=== PATIENT | male | born 1945 | race Caucasian/White ===

== ENCOUNTER 2020-02-14 13:45 | Emergency (ER) | payer MEDICARE, OTHER, SELFPAY | END 2020-02-14 15:30 | disposition left against medical advice (07) | PROVIDERS: Emergency Provider Emergency Medicine | DX: M79.603 Pain in arm, unspecified (principal) ==

== ENCOUNTER 2020-03-05 06:51 | Emergency (ER) | payer MEDICARE, SELFPAY ==
[2020-03-05 06:53] VITALS: BP 150/90; PULSE 75; RESP 14; TEMP 36.4; O2SAT 99; BMI 37.4
--- NOTE | 2020-03-05 07:27 | XR_ITS ---
EXAMINATION: XR elbow RT min 3V CLINICAL INFORMATION: Reason for Exam pain COMPARISON: None available at the time of this dictation. TECHNIQUE: Frontal lateral obliques views of the elbow were obtained. FINDINGS: Narrowing of joint space and developed osteophyte from articular edges suggests underlying degenerative osteoarthritis. No fracture. Bone alignments are satisfactory. No osteolytic or osteoblastic lesion. XR/XR elbow RT min 3V IMPRESSION: Degenerative osteoarthritis. No fracture.
--- NOTE | 2020-03-05 07:27 | XR_ITS ---
EXAMINATION: XR elbow LT min 3V CLINICAL INFORMATION: Reason for Exam pain COMPARISON: None available at the time of this dictation. TECHNIQUE: Frontal lateral and oblique views of the elbow were obtained. FINDINGS: Oblique radiolucent line through the proximal radius concerning for possible hairline nondisplaced fracture. Bone alignments remain satisfactory. There is underlying degenerative osteoarthritis. XR/XR elbow LT min 3V IMPRESSION: Subtle oblique radiolucent line through the proximal left radius, suspect nondisplaced hairline fracture. This could be confirmed by CT scan or MRI. Underlying degenerative osteoarthritis.
[2020-03-05] MEDS: oxyCODONE HCl Immed Release 5 MG TABLET PO (07:38)
[2020-03-05] MEDS: Ibuprofen 800 MG TABLET PO (07:38)
[2020-03-05 09:14] LABS: Basophils Absolute Auto 0.1 X10*3/uL (0.0-0.2); Basophils Percent Auto 0.9 % (0-2); Eosinophils Absolute Auto 0.4 X10*3/uL (0.0-0.4); Eosinophils Percent Auto 3.6 % (0-4); Hematocrit 44.4 % (42-52); Hemoglobin 14.5 g/dl (14.0-18.0); Imm Gran Abs Auto 0.02 X10*3/uL (0.00-0.03); Imm Gran Pct Auto 0.2 % (0.0-0.4); Lymphocytes Absolute Auto 1.6 X10*3/uL (1.2-4.9); Lymphocytes Percent Auto 16.2 % (20-40); MANUAL DIFF FLAG NO; Mean Corpuscular HGB Conc 32.7 g/dl (31.0-36.0); Mean Corpuscular Hemoglobin 29.2 pg (27.0-33.0); Mean Corpuscular Volume 89.3 fL (80-98); Mean Platelet Volume 8.7 fL (9.4-12.4); Monocytes Percent Auto 10.1 % (2-11); Neutrophils Absolute Auto 6.7 X10*3/uL (2.0-8.3); Platelet Count 297 X10*3/uL (160-400); Red Blood Count 4.97 X10*6/uL (4.60-5.80); Red Cell Distribution Width 13.6 % (11.0-16.0); White Blood Count 9.7 X10*3/uL (4.8-10.8)
[2020-03-05 09:57] LABS: C Reactive Protein 2.26 mg/dL (< or = 0.50)
[2020-03-05 09:59] LABS: Anion Gap 12 (12-20); Blood Urea Nitrogen 11 mg/dL (9-16); Carbon Dioxide 27 mmol/L (22-29); Chloride 101 mmol/L (96-108); Creatinine Clr Calc Pharmacy 97.2; Estimated Glomerular Filt Rate > 60; Glucose Random 101 mg/dL (60-115); Lipase 14 U/L (8-78); Potassium 4.5 mmol/l (3.3-5.1); Sodium 135 mmol/L (135-145)
[2020-03-05 10:01] LABS: Calcium 9.1 mg/dL (8.4-10.2)
--- NOTE | 2020-03-05 10:12 | CT_ITS ---
EXAMINATION: NONCONTRAST CT SCAN ELBOW. CLINICAL INFORMATION: Questionable fracture. COMPARISON: None TECHNIQUE: Noncontrast CT scan elbow Department standard protocol. FINDINGS: Bones: Distal humerus, trochlear, included proximal radius and ulna are intact. No radiographic evidence of acute fracture. No periosteal reaction. Joints: Narrowing of joint spaces and developed osteophytes from articular edges suggests underlying degenerative osteoarthritis. Soft tissue: Surrounding soft tissues grossly unremarkable. CT/CT elbow LT wo con IMPRESSION: 1. No CT evidence of acute fracture. 2. There is underlying moderate Underlying degenerative osteoarthritis.
[2020-03-05 10:58] LABS: Erythrocyte Sedimentation Rate 33 MM/HR (0-15)
[2020-03-05 11:41] VITALS: BP 149/99; PULSE 18
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
== END 2020-03-05 12:27 | disposition home or self-care (01) ==
PROVIDERS: Emergency Provider Emergency Medicine
DX: M06.812 Other specified rheumatoid arthritis, left shoulder (principal); M06.811 Other specified rheumatoid arthritis, right shoulder; Z79.899 Other long term (current) drug therapy
CPT/HCPCS: 36415; 73080; 73200; 80048; 83690; 85025; 85652; 86140; 99284

== ENCOUNTER 2020-05-11 08:02 | Outpatient (REF) | payer MEDICARE, SELFPAY ==
--- NOTE | 2020-05-11 09:30 | XR_ITS ---
EXAMINATION: XR HAND, BILATERAL XR WRIST, BILATERAL CLINICAL INFORMATION: Rheumatoid arthritis with rheumatoid factor. COMPARISON: None TECHNIQUE: 4-view right hand and wrist and 4-view left hand and wrist. FINDINGS: RIGHT HAND AND WRIST: There is osteopenia of visualized bones. No acute fracture or dislocation is evident. There is a bone island noted within the 1st distal phalanx. There is narrowing of the 2nd distal interphalangeal joint with some mild sclerosis and spurring. There is some mild spurring seen about the 1st metacarpophalangeal joint. There appears be a small periarticular erosion or subchondral cyst seen involving the base of the 4th distal phalanx. There is also question of a subchondral cyst or small erosion involving the periarticular region head of the 3rd middle phalanx. There is an erosion involving the periarticular head of the 3rd metacarpal. There is a small erosion seen involving the periarticular region base of the 5th proximal phalanx. There is a large subchondral low-density lesion within the distal radius without cortical break appreciated and with mild sclerotic rim. There is some mild degenerative change of the triscaphe joint as well as some mild spurring about the 1st carpometacarpal joint. There appears to be an erosion or subchondral cyst involving the base of the 2nd metacarpal. No significant soft tissue swelling is seen. No periosteal new bone formation. LEFT HAND AND WRIST: Views of the left hand demonstrate some mild degenerative narrowing and spurring about the 1st metacarpophalangeal joint. There is some narrowing and spurring seen involving the 2nd metacarpophalangeal joint as well some spurring about the 3rd metacarpophalangeal joint. No definite erosive change. Subchondral cysts are seen involving the 2nd metacarpal head. There appears to be an erosion involving the proximal lunate. No significant soft tissue swelling identified. No periosteal new bone formation. XR/XR hand wrist RT IMPRESSION: Mild degenerative and erosive change of the right hand which may be indicative of early erosive arthritides with a periarticular pattern and no evidence of new bone formation which can be seen with rheumatoid arthritis. No significant joint space destruction. Mild degenerative change as described with question of few erosions but not definite.
--- NOTE | 2020-05-11 09:30 | XR_ITS ---
EXAMINATION: XR ELBOW, LEFT XR ELBOW, RIGHT CLINICAL INFORMATION: M05.9 - Rheumatoid arthritis with rheumatoid factor, unspecified COMPARISON: Bilateral elbow radiographs 03/05/2020, CT left elbow 03/05/2020 TECHNIQUE: Left elbow is imaged in 3 views. Right elbow is imaged in 4 views. There are total of 7 views. FINDINGS: Left: There is normal bony mineralization. No periarticular demineralization. No definite elbow capsular effusion. There is joint narrowing medial and lateral sides of the elbow joint with subchondral sclerosis and spurring. Small subchondral geode present capitellum. No focal definite erosive change. Right: There is normal bony mineralization. No periarticular demineralization. No definite elbow capsular effusion. There is joint narrowing medial and lateral sides of the elbow joint with subchondral sclerosis and spurring. Small subchondral geode present capitellum. No focal definite erosive change. XR/XR elbow LT 2V IMPRESSION: 1. Normal bony mineralization. No visible elbow capsular effusion. 2. Bilateral narrowing elbow joint mediolateral sides with subchondral sclerosis and spurring and capitellum subchondral geode. No definite focal erosive change.
[2020-05-11 09:34] LABS: MANUAL DIFF FLAG NO
--- NOTE | 2020-05-11 09:36 | XR_ITS ---
EXAMINATION: XR ELBOW, LEFT XR ELBOW, RIGHT CLINICAL INFORMATION: M05.9 - Rheumatoid arthritis with rheumatoid factor, unspecified COMPARISON: Bilateral elbow radiographs 03/05/2020, CT left elbow 03/05/2020 TECHNIQUE: Left elbow is imaged in 3 views. Right elbow is imaged in 4 views. There are total of 7 views. FINDINGS: Left: There is normal bony mineralization. No periarticular demineralization. No definite elbow capsular effusion. There is joint narrowing medial and lateral sides of the elbow joint with subchondral sclerosis and spurring. Small subchondral geode present capitellum. No focal definite erosive change. Right: There is normal bony mineralization. No periarticular demineralization. No definite elbow capsular effusion. There is joint narrowing medial and lateral sides of the elbow joint with subchondral sclerosis and spurring. Small subchondral geode present capitellum. No focal definite erosive change. XR/XR elbow RT 2V IMPRESSION: 1. Normal bony mineralization. No visible elbow capsular effusion. 2. Bilateral narrowing elbow joint mediolateral sides with subchondral sclerosis and spurring and capitellum subchondral geode. No definite focal erosive change.
[2020-05-11 09:39] LABS: Basophils Absolute Auto 0.1 X10*3/uL (0.0-0.2); Basophils Percent Auto 1.1 % (0-2); Eosinophils Absolute Auto 0.3 X10*3/uL (0.0-0.4); Eosinophils Percent Auto 3.2 % (0-4); Hematocrit 42.8 % (42-52); Hemoglobin 13.9 g/dl (14.0-18.0); Imm Gran Abs Auto 0.03 X10*3/uL (0.00-0.03); Imm Gran Pct Auto 0.4 % (0.0-0.4); Lymphocytes Absolute Auto 1.7 X10*3/uL (1.2-4.9); Lymphocytes Percent Auto 20.6 % (20-40); Mean Corpuscular HGB Conc 32.5 g/dl (31.0-36.0); Mean Corpuscular Hemoglobin 28.8 pg (27.0-33.0); Mean Corpuscular Volume 88.8 fL (80-98); Mean Platelet Volume 9.3 fL (9.4-12.4); Monocytes Absolute Auto 0.8 X10*3/uL (0.1-1.2); Monocytes Percent Auto 9.5 % (2-11); Neutrophils Absolute Auto 5.3 X10*3/uL (2.0-8.3); Neutrophils Percent Auto 65.2 % (45-73); Platelet Count 343 X10*3/uL (160-400); Red Blood Count 4.82 X10*6/uL (4.60-5.80); White Blood Count 8.1 X10*3/uL (4.8-10.8)
[2020-05-11 10:09] LABS: Alanine Aminotransferase 11 U/L (0-40); Albumin Level 4.2 g/dL (3.5-5.0); Alkaline Phosphatase 69 U/L (39-117); Anion Gap 14 (12-20); Aspartate Amino Transferase 15 U/L (5-37); Bilirubin Total 0.6 mg/dL (0.0-1.0); Blood Urea Nitrogen 12 mg/dL (9-16); C Reactive Protein 1.37 mg/dL (< or = 0.50); Calcium 9.6 mg/dL (8.4-10.2); Carbon Dioxide 28 mmol/L (22-29); Chloride 101 mmol/L (96-108); Estimated Glomerular Filt Rate > 60; Glucose Random 103 mg/dL (60-115); Potassium 4.5 mmol/l (3.3-5.1); Sodium 138 mmol/L (135-145); Total Protein 7.6 g/dL (6.5-8.0); Uric Acid 6.5 mg/dL (3.4-7.0)
[2020-05-11 10:18] LABS: Rheumatoid Factor 96.2 IU/mL (<15.0)
[2020-05-11 10:21] LABS: HBS Num1 1.35 mIU/mL (0-7.99); HBc Num1 0.05 S/CO (0.00-0.79); HBsAGNum1 0.19 S/CO (0.00-0.99); Hepatitis B Core Antibody Nonreactive (Nonreactive); Hepatitis B Surface Antigen Negative (Negative); ~HepC Num1 0.07 S/CO (0.00-0.79); ~Hepatitis A Antibody IgM Nonreactive (Nonreactive); ~Hepatitis B Surface Antibody NONREACTIVE (Nonreactive); ~Hepatitis C Antibody Nonreactive (Nonreactive)
[2020-05-11 10:59] LABS: Erythrocyte Sedimentation Rate 50 MM/HR (0-15)
[2020-05-12 22:06] LABS: Cyclic Citrullinated Peptide >250 UNITS
[2020-05-14 23:32] LABS: TS Negative Control Passed; TS Panel A 2; TS Panel B 0; TS Positive Control Passed; TSpotTB Negative (SeeBelow)
[2020-05-15 19:08] LABS: Anti Nuclear Antibody Pattern Nuclear, Homogeneous; Anti Nuclear Antibody Screen POSITIVE (NEGATIVE); Anti Nuclear Antibody Titer 1:40 titer
== END 2020-05-11 08:03 | disposition home or self-care (01) ==
LOC: HO.LAB 08:02
PROVIDERS: PCP Family Medicine; Visit Provider Student in an Organized Health Care Education/Training Program
DX: M05.9 Rheumatoid arthritis with rheumatoid factor, unspecified (principal); M10.9 Gout, unspecified; Z79.899 Other long term (current) drug therapy
CPT/HCPCS: 36415; 73070; 73110; 73130; 80053; 84550; 85025; 85652; 86038; 86039; 86140; 86200; 86431; 86481; 86704; 86706; 86709; 86803; 87340; 99202

== ENCOUNTER → 2020-05-26 07:13 | Outpatient (BNVA) | payer MEDICARE, OTHER, SELFPAY | PROVIDERS: PCP Family Medicine; Visit Provider Student in an Organized Health Care Education/Training Program | DX: M05.9 Rheumatoid arthritis with rheumatoid factor, unspecified (principal); M10.9 Gout, unspecified; M85.80 Other specified disorders of bone density and structure, unspecified site | CPT/HCPCS: 99212 ==

== ENCOUNTER 2020-06-01 09:26 | Outpatient (REF) | payer MEDICARE, SELFPAY ==
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
== END 2020-06-01 09:27 | disposition home or self-care (01) ==
LOC: HO.MAMMO 09:26
PROVIDERS: Visit Provider Student in an Organized Health Care Education/Training Program
DX: Z13.820 Encounter for screening for osteoporosis (principal); M85.88 Other specified disorders of bone density and structure, other site; M06.9 Rheumatoid arthritis, unspecified; Z79.52 Long term (current) use of systemic steroids; Z79.899 Other long term (current) drug therapy
CPT/HCPCS: 77080

== ENCOUNTER → 2020-06-20 09:44 | Outpatient (BNVA) | payer OTHER, MEDICARE, SELFPAY | PROVIDERS: PCP Family Medicine; Visit Provider Student in an Organized Health Care Education/Training Program ==

== ENCOUNTER 2020-08-25 10:01 | Outpatient (REF) | payer MEDICARE, SELFPAY ==
[2020-08-25 11:09] LABS: MANUAL DIFF FLAG NO
[2020-08-25 11:57] LABS: Alanine Aminotransferase 10 U/L (0-40); Albumin Level 4.1 g/dL (3.5-5.0); Alkaline Phosphatase 69 U/L (39-117); Anion Gap 14 (12-20); Aspartate Amino Transferase 12 U/L (5-37); Bilirubin Total 0.2 mg/dL (0.0-1.0); Blood Urea Nitrogen 10 mg/dL (9-16); C Reactive Protein 0.85 mg/dL (< or = 0.50); Calcium 9.9 mg/dL (8.4-10.2); Carbon Dioxide 29 mmol/L (22-29); Chloride 103 mmol/L (96-108); Estimated Glomerular Filt Rate > 60; Glucose Random 76 mg/dL (60-115); Potassium 5.2 mmol/L (3.3-5.1); Sodium 141 mmol/L (135-145); Total Protein 7.3 g/dL (6.5-8.0)
[2020-08-25 11:58] LABS: Basophils Absolute Auto 0.1 X10*3/uL (0.0-0.2); Basophils Percent Auto 1.1 % (0-2); Eosinophils Absolute Auto 0.4 X10*3/uL (0.0-0.4); Eosinophils Percent Auto 4.1 % (0-4); Hematocrit 43.8 % (42-52); Imm Gran Abs Auto 0.04 X10*3/uL (0.00-0.03); Imm Gran Pct Auto 0.5 % (0.0-0.4); Lymphocytes Absolute Auto 1.9 X10*3/uL (1.2-4.9); Lymphocytes Percent Auto 21.9 % (20-40); Mean Corpuscular Hemoglobin 28.4 pg (27.0-33.0); Mean Corpuscular Volume 88.8 fL (80-98); Mean Platelet Volume 9.1 fL (9.4-12.4); Monocytes Absolute Auto 0.9 X10*3/uL (0.1-1.2); Monocytes Percent Auto 10.2 % (2-11); Neutrophils Absolute Auto 5.3 X10*3/uL (2.0-8.3); Neutrophils Percent Auto 62.2 % (45-73); Platelet Count 385 X10*3/uL (160-400); Red Blood Count 4.93 X10*6/uL (4.60-5.80); Red Cell Distribution Width 14.4 % (11.0-16.0); White Blood Count 8.6 X10*3/uL (4.8-10.8)
[2020-08-25 12:41] LABS: Erythrocyte Sedimentation Rate 51 MM/HR (0-15)
[2020-08-29 12:56] LABS: Vitamin D 25-OH, D2 <4 ng/mL; Vitamin D 25-OH, D3 32 ng/mL; Vitamin D 25-OH, Total 32 ng/mL (30-100)
== END 2020-08-25 10:02 | disposition home or self-care (01) ==
LOC: HO.LAB 10:01
PROVIDERS: PCP Family Medicine; Visit Provider Student in an Organized Health Care Education/Training Program
DX: M05.9 Rheumatoid arthritis with rheumatoid factor, unspecified (principal); M85.80 Other specified disorders of bone density and structure, unspecified site; M10.9 Gout, unspecified; Z87.891 Personal history of nicotine dependence; Z88.8 Allergy status to other drugs, medicaments and biological substances; Z79.899 Other long term (current) drug therapy
CPT/HCPCS: 36415; 80053; 82306; 85025; 85652; 86140; 99212

== ENCOUNTER 2020-12-06 11:40 | Outpatient (REF) | payer OTHER, SELFPAY ==
[2020-12-06 13:47] LABS: Alanine Aminotransferase 14 U/L (0-40); Albumin Level 4.2 g/dL (3.5-5.0); Alkaline Phosphatase 76 U/L (39-117); Anion Gap 13 (12-20); Aspartate Amino Transferase 17 U/L (5-37); Bilirubin Total 0.6 mg/dL (0.0-1.0); Blood Urea Nitrogen 10 mg/dL (9-16); C Reactive Protein 0.76 mg/dL (< or = 0.50); Calcium 9.8 mg/dL (8.4-10.2); Carbon Dioxide 27 mmol/L (22-29); Chloride 102 mmol/L (96-108); Estimated Glomerular Filt Rate > 60; Glucose Random 94 mg/dL (60-115); Potassium 4.8 mmol/L (3.3-5.1); Sodium 137 mmol/L (135-145); Total Protein 7.5 g/dL (6.5-8.0)
[2020-12-06 13:56] LABS: Erythrocyte Sedimentation Rate 34 MM/HR (0-15)
== END 2020-12-06 11:41 | disposition home or self-care (01) ==
LOC: HO.LAB 11:40
PROVIDERS: PCP Family Medicine; Visit Provider Student in an Organized Health Care Education/Training Program
DX: M05.9 Rheumatoid arthritis with rheumatoid factor, unspecified (principal)
CPT/HCPCS: 36415; 80053; 85652; 86140

== ENCOUNTER 2020-12-08 13:00 | Outpatient (REF) | payer OTHER, SELFPAY ==
[2020-12-08 14:48] LABS: MANUAL DIFF FLAG NO
[2020-12-08 14:50] LABS: Basophils Absolute Auto 0.1 X10*3/uL (0.0-0.2); Basophils Percent Auto 0.9 % (0-2); Eosinophils Absolute Auto 0.3 X10*3/uL (0.0-0.4); Eosinophils Percent Auto 4.1 % (0-4); Hematocrit 41.5 % (42-52); Hemoglobin 13.3 g/dl (14.0-18.0); Imm Gran Abs Auto 0.03 X10*3/uL (0.00-0.03); Imm Gran Pct Auto 0.4 % (0.0-0.4); Mean Corpuscular Hemoglobin 28.2 pg (27.0-33.0); Mean Corpuscular Volume 87.9 fL (80-98); Mean Platelet Volume 8.9 fL (9.4-12.4); Monocytes Absolute Auto 0.7 X10*3/uL (0.1-1.2); Monocytes Percent Auto 8.7 % (2-11); Neutrophils Absolute Auto 5.1 X10*3/uL (2.0-8.3); Neutrophils Percent Auto 61.9 % (45-73); Platelet Count 320 X10*3/uL (160-400); Red Blood Count 4.72 X10*6/uL (4.60-5.80); Red Cell Distribution Width 14.8 % (11.0-16.0); White Blood Count 8.1 X10*3/uL (4.8-10.8)
[2020-12-10 15:27] LABS: TS Negative Control Passed; TS Panel A 0; TS Panel B 0; TS Positive Control Passed; TSpotTB Negative (Negative)
[2020-12-11 03:28] LABS: HBc Num1 0.08 S/CO (0.00-0.79); HBsAGNum1 0.16 S/CO (0.00-0.99); Hepatitis B Core Antibody Nonreactive (Nonreactive); Hepatitis B Surface Antigen Negative (Negative); ~HepC Num1 0.07 S/CO (0.00-0.79); ~Hepatitis C Antibody Nonreactive (Nonreactive)
[2020-12-11 03:32] LABS: HBS Num1 0.36 mIU/mL (0-7.99); ~Hepatitis B Surface Antibody NONREACTIVE (Nonreactive)
[2020-12-13 08:46] LABS: Hepatitis A Antibody IgM 0.12 Index (0-0.79); ~Hepatitis A Antibody IgM Nonreactive (Nonreactive)
== END 2020-12-08 13:01 | disposition home or self-care (01) ==
LOC: HO.LAB 13:00
PROVIDERS: PCP Family Medicine; Visit Provider Nurse Practitioner Family
DX: Z01.84 Encounter for antibody response examination (principal); Z11.1 Encounter for screening for respiratory tuberculosis; Z11.59 Encounter for screening for other viral diseases; M05.9 Rheumatoid arthritis with rheumatoid factor, unspecified; M10.9 Gout, unspecified; M85.80 Other specified disorders of bone density and structure, unspecified site; Z79.899 Other long term (current) drug therapy
CPT/HCPCS: 36415; 85025; 86481; 86704; 86706; 86709; 86803; 87340; 99212

== ENCOUNTER 2021-02-07 08:21 | Outpatient (REF) | payer OTHER, SELFPAY ==
[2021-02-07 08:40] LABS: MANUAL DIFF FLAG NO
[2021-02-07 08:47] LABS: Basophils Percent Auto 0.6 % (0-2); Eosinophils Absolute Auto 0.3 X10*3/uL (0.0-0.4); Eosinophils Percent Auto 5.1 % (0-4); Hematocrit 43.9 % (42-52); Hemoglobin 14.4 g/dl (14.0-18.0); Imm Gran Abs Auto 0.01 X10*3/uL (0.00-0.03); Imm Gran Pct Auto 0.1 % (0.0-0.4); Lymphocytes Percent Auto 29.8 % (20-40); Mean Corpuscular HGB Conc 32.8 g/dl (31.0-36.0); Mean Corpuscular Volume 88.5 fL (80-98); Mean Platelet Volume 8.9 fL (9.4-12.4); Monocytes Absolute Auto 0.8 X10*3/uL (0.1-1.2); Monocytes Percent Auto 11.8 % (2-11); Neutrophils Absolute Auto 3.5 X10*3/uL (2.0-8.3); Neutrophils Percent Auto 52.6 % (45-73); Platelet Count 272 X10*3/uL (160-400); Red Blood Count 4.96 X10*6/uL (4.60-5.80); Red Cell Distribution Width 15.4 % (11.0-16.0); White Blood Count 6.7 X10*3/uL (4.8-10.8)
[2021-02-07 09:15] LABS: Alanine Aminotransferase 14 U/L (0-40); Albumin Level 4.2 g/dL (3.5-5.0); Alkaline Phosphatase 65 U/L (39-117); Anion Gap 13 (12-20); Aspartate Amino Transferase 17 U/L (5-37); Bilirubin Total 1.1 mg/dL (0.0-1.0); Blood Urea Nitrogen 12 mg/dL (9-16); Calcium 9.8 mg/dL (8.4-10.2); Carbon Dioxide 27 mmol/L (22-29); Chloride 104 mmol/L (96-108); Estimated Glomerular Filt Rate > 60; Glucose Random 99 mg/dL (60-115); Potassium 4.5 mmol/L (3.3-5.1); Sodium 139 mmol/L (135-145); Total Protein 7.4 g/dL (6.5-8.0)
[2021-02-07 09:26] LABS: C Reactive Protein 0.49 mg/dL (< or = 0.50)
[2021-02-07 09:37] LABS: Erythrocyte Sedimentation Rate 20 MM/HR (0-15)
[2021-02-07 09:48] LABS: Uric Acid 6.8 mg/dL (3.4-7.0)
== END 2021-02-07 08:22 | disposition home or self-care (01) ==
LOC: HO.LAB 08:21
PROVIDERS: PCP Family Medicine; Visit Provider Nurse Practitioner Family
DX: M05.9 Rheumatoid arthritis with rheumatoid factor, unspecified (principal)
CPT/HCPCS: 36415; 80053; 84550; 85025; 85652; 86140

== ENCOUNTER → 2021-02-12 08:36 | Outpatient (BNVA) | payer OTHER, SELFPAY | PROVIDERS: PCP Family Medicine; Visit Provider Nurse Practitioner Family | DX: M05.9 Rheumatoid arthritis with rheumatoid factor, unspecified (principal); M10.9 Gout, unspecified; M85.80 Other specified disorders of bone density and structure, unspecified site; Z87.891 Personal history of nicotine dependence | CPT/HCPCS: 99212 ==

== ENCOUNTER 2021-03-31 11:25 | Inpatient (IN) | payer OTHER, SELFPAY ==
[2021-03-31] VITALS (8 sets, daily range): BP systolic 105–157; BP diastolic 51–95; PULSE 59–107; RESP 16–28; TEMP 36.1–38.2; O2SAT 89–98; BMI 36.1; BMI 36.6
--- NOTE | ~2021-03-31 | XR_ITS ---
EXAMINATION: XR CHEST CLINICAL INFORMATION: Dyspnea. COMPARISON: 01/13/2017 chest radiographs. TECHNIQUE: Frontal view of the chest was obtained. FINDINGS: Mild bilateral patchy opacities are seen with peripheral distribution in the mid and lower lung merino, right greater than left. The heart and mediastinal structures are unremarkable. XR/XR chest 1V IMPRESSION: Mild bilateral patchy opacities are nonspecific, but suggest an infectious/inflammatory process. COVID 19 can demonstrate this appearance. Correlate clinically.
--- NOTE | 2021-03-31 12:04 | ECG_ITS ---
Test Reason : WEAKNESS Blood Pressure : / mmHG Vent. 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
--- NOTE | 2021-03-31 12:06 | ED_ITS ---
HPI - General Adult General Chief complaint: General Medical Stated complaint: COVID+ Time Seen by Provider: 03/31/21 11:36 Source: patient Mode of arrival: ambulatory Limitations: no limitations History of Present Illness HPI narrative: COVID + unvaccinated in room next door both went to a family gathering unmasked symptoms started around 03/17 dx 03/26 MD complaint: fatigue, palpitations Onset (ago): day(s) (03/17) Location: chest Radiation: non-radiation Severity: moderate Quality: aching Pain Consistency: constant Relieving factors: rest Exacerbating factors: other (exertion) Associated symptoms: cough, malaise, weakness and other Treatments prior to arrival: none Related Data Home Medications Medication Instructions Recorded Confirmed albuterol sulfate 90 mcg/actuation 2 puff INHALATION Q6H PRN 05/11/20 03/31/21 aerosol inhaler budesonide-formoterol HFA 160 1 puff INHALATION DAILY g 05/11/20 03/31/21 mcg-4.5 mcg/actuation aerosol inhaler montelukast 10 mg tablet 1 tab PO DAILY 03/31/21 03/31/21 Previous Rx's Medication Instructions Recorded etanercept 50 mg/mL (1 mL) 50 mg SUBCUT QWEEK #4 ml 03/06/21 subcutaneous pen injector (Enbrel SureClick) Allergies Allergy/AdvReac Type Severity Reaction Status Date / Time Bgnzpua-[id number]-[id number] Reductase Allergy Severe HIVES Verified 02/12/21 08:54 Inhibitor [[id number]-QUK REDUCTASE INHIBITOR] methotrexate AdvReac Intermediate visual Verified 02/12/21 08:54 disturbance Review of Systems Review of Systems: Constitutional : No Fever, No Chills, pos fatigue ENT/Mouth : No sore throat, No Rhinorrhea, No Swallowing Difficulty Eyes: No Eye Pain, No Swelling, No Redness Cardiovascular : No Chest Pain, positive SOB, No Orthopnea, no Edema, pos palpitations Respiratory : pos Cough, No Sputum, No Wheezing, positive dyspnea Gastrointestinal : No Nausea, No Vomiting, No Diarrhea, No abdominal Pain, No Hematochezia, No Melena Genitourinary : No Dysuria, No Urinary Frequency, No Hematuria Musculoskeletal : No joint pain, No Myalgias Skin : No Skin Lesions, No rash Neuro : No Weakness, No Numbness, No Dizziness, No Headache Psych : No Anxiety/Panic, No Depression Heme/Lymph: No Bruising, No Lymphadenopathy Endocrine : No Polyuria, No Polydipsia All other systems reviewed and are negative [facility] Past Medical History Medical History Acute rheumatoid arthritis Gout Seropositive rheumatoid arthritis Surgical History H/O eye surgery History of knee surgery Social History Social History Alcohol intake: current Alcohol intake frequency: holidays/special occasions only Alcohol type: wine Patient Tobacco Use Status: Former Tobacco user Advance Directives: No Advance Directives Information Provided: No Physical Exam Vital Signs: Vital Signs: Last Vital Signs Temp 100.7 F H 03/31/21 13:29 Pulse 107 H 03/31/21 13:29 Resp 22 H 03/31/21 14:05 BP 105/51 L 03/31/21 13:29 Pulse Ox 95 03/31/21 14:12 BMI result Body Mass Index 36.1 Appearance: Alert. Oriented X3. No acute distress. Eyes: Pupils equal, round and reactive to light. ENT: Pharynx normal. Neck: Normal inspection. Neck supple. CVS: Normal heart rate and rhythm. Pulses normal. Respiratory: No respiratory distress. Breath sounds coarse and diminished, anterior rhonchi heard Abdomen: Soft and non-tender. Skin: Skin warm and dry. Normal skin color. Normal skin turgor. Extremities: No lower extremity edema. No calf ttp Neuro: Oriented X 3. No motor deficit. No sensory deficit. Course Course Course Narrative: stable on supplemental O2 Medical Decision Making [facility] Narrative Medical decision making narrative: 76 yo male unvaccinated with RA, gout here with viral illness since 03/17 - COVID + he is hypoxic on arrival to our ED, responding to supplemental O2 at this time labs, EKG< CXR< cultures, IV steroids, anticipate admission given hypoxia Lab Data Result diagrams: 03/31/21 12:49 03/31/21 14:42 Labs: Lab Results 03/31/21 03/31/21 12 Range/Units 12:49 12:49 12:49 WBC 5.6 (4.8-10.8) X10*3/uL RBC 4.91 (4.60-5.80) X10*6/uL Hgb 14.5 (14.0-18.0) g/dl Hct 42.8 (42.0-52.0) % MCV 87.2 (80.0-98.0) fL MCH 29.5 (27.0-33.0) pg MCHC 33.9 (31.0-36.0) g/dl RDW 14.9 (11.0-16.0) % Plt Count 172 (160-400) X10*3/uL MPV 10.4 (9.4-12.4) fL Immature Gran % (Auto) 0.5 H (0.0-0.4) % Neut % (Auto) 73.6 H (45-73) % Lymph % (Auto) 18.4 L (20-40) % [place] % (Auto) 6.8 (2-11) % Eos % (Auto) 0.5 (0-4) % Baso % (Auto) 0.2 (0-2) % Lymph # (Auto) 1.0 L (1.2-4.9) X10*3/uL [place] # (Auto) 0.4 (0.1-1.2) X10*3/uL Eos # (Auto) 0.0 (0.0-0.4) X10*3/uL Baso # (Auto) 0.0 (0.0-0.2) X10*3/uL Abs Immat Gran (auto) 0.03 (0.00-0.03) X10*3/uL Absolute Neuts (auto) 4.1 (2.0-8.3) x10*3/uL Absolute Nucleated RBC 0.000 (0.0-0.012) X10*3/uL Nucleated RBC % (auto) 0.0 (0.0-0.2) /100WBC PT 14.0 H (9.9-13.0) SEC INR 1.2 H (0.9-1.1) APTT 26.5 (24.1-38.0) SEC D-Dimer High Sensitivty 735 NG/ML VBG pH (7.32-7.43) VBG pCO2 mmHg VBG pO2 mmHg VBG HCO3 (22-26) mmol/L VBG O2 Saturation % VBG Base Excess mmol/L Sodium (135-145) mmol/L Potassium (3.3-5.1) mmol/L Chloride (96-108) mmol/L Carbon Dioxide (22-29) mmol/L Anion Gap (12-20) BUN (9-16) mg/dL Creatinine (0.5-1.4) mg/dL Estim Creat Clear Calc Estimated GFR Random Glucose (60-115) mg/dL Lactic Acid (0.5-2.0) mmol/L Calcium (8.4-10.2) mg/dL Magnesium (1.6-2.6) mg/dL Total Bilirubin (0.0-1.0) mg/dL Direct Bilirubin (0.0-0.5) mg/dL AST (5-37) U/L ALT (0-40) U/L Alkaline Phosphatase (39-117) U/L Lactate Dehydrogenase (118-273) U/L Total Creatine Kinase (38-174) U/L Troponin I High Sens (<3.5-35.0) ng/L C-Reactive Protein (< or = 0.50) mg/dL Total Protein (6.5-8.0) g/dL Albumin (3.5-5.0) g/dL COVID-19 ([facility]OGER) Positive A (Negative) COVID-19 Clin Com See Note 03/31/21 03/31/21 03/31/21 Range/Units 12:50 12:57 14:42 WBC (4.8-10.8) X10*3/uL RBC (4.60-5.80) X10*6/uL Hgb (14.0-18.0) g/dl Hct (42.0-52.0) % MCV (80.0-98.0) fL MCH (27.0-33.0) pg MCHC (31.0-36.0) g/dl RDW (11.0-16.0) % Plt Count (160-400) X10*3/uL MPV (9.4-12.4) fL Immature Gran % (Auto) (0.0-0.4) % Neut % (Auto) (45-73) % Lymph % (Auto) (20-40) % [place] % (Auto) (2-11) % Eos % (Auto) (0-4) % Baso % (Auto) (0-2) % Lymph # (Auto) (1.2-4.9) X10*3/uL [place] # (Auto) (0.1-1.2) X10*3/uL Eos # (Auto) (0.0-0.4) X10*3/uL Baso # (Auto) (0.0-0.2) X10*3/uL Abs Immat Gran (auto) (0.00-0.03) X10*3/uL Absolute Neuts (auto) (2.0-8.3) x10*3/uL Absolute Nucleated RBC (0.0-0.012) X10*3/uL Nucleated RBC % (auto) (0.0-0.2) /100WBC PT (9.9-13.0) SEC INR (0.9-1.1) APTT (24.1-38.0) SEC D-Dimer High Sensitivty NG/ML VBG pH 7.42 (7.32-7.43) VBG pCO2 39 mmHg VBG pO2 35 mmHg VBG HCO3 25 (22-26) mmol/L VBG O2 Saturation 59.0 % VBG Base Excess 1.4 mmol/L Sodium 132 L (135-145) mmol/L Potassium 4.2 (3.3-5.1) mmol/L Chloride 100 (96-108) mmol/L Carbon Dioxide 23 (22-29) mmol/L Anion Gap 13 (12-20) BUN 10 (9-16) mg/dL Creatinine 0.94 (0.5-1.4) mg/dL Estim Creat Clear Calc 94.4 Estimated GFR > 60 Random Glucose 114 (60-115) mg/dL Lactic Acid (0.5-2.0) mmol/L Calcium 8.6 D (8.4-10.2) mg/dL Magnesium 2.1 (1.6-2.6) mg/dL Total Bilirubin 0.6 (0.0-1.0) mg/dL Direct Bilirubin 0.4 (0.0-0.5) mg/dL AST 49 H D (5-37) U/L ALT 23 (0-40) U/L Alkaline Phosphatase 49 D (39-117) U/L Lactate Dehydrogenase 321 H (118-273) U/L Total Creatine Kinase 688 H (38-174) U/L Troponin I High Sens 19.3 (<3.5-35.0) ng/L C-Reactive Protein 11.09 H (< or = 0.50) mg/dL Total Protein 6.9 (6.5-8.0) g/dL Albumin 3.7 (3.5-5.0) g/dL COVID-19 ([facility]ER) (Negative) COVID-19 Clin Com 03/31/21 Range/Units 14:42 WBC (4.8-10.8) X10*3/uL RBC (4.60-5.80) X10*6/uL Hgb (14.0-18.0) g/dl Hct (42.0-52.0) % MCV (80.0-98.0) fL MCH (27.0-33.0) pg MCHC (31.0-36.0) g/dl RDW (11.0-16.0) % Plt Count (160-400) X10*3/uL MPV (9.4-12.4) fL Immature Gran % (Auto) (0.0-0.4) % Neut % (Auto) (45-73) % Lymph % (Auto) (20-40) % [place] % (Auto) (2-11) % Eos % (Auto) (0-4) % Baso % (Auto) (0-2) % Lymph # (Auto) (1.2-4.9) X10*3/uL [place] # (Auto) (0.1-1.2) X10*3/uL Eos # (Auto) (0.0-0.4) X10*3/uL Baso # (Auto) (0.0-0.2) X10*3/uL Abs Immat Gran (auto) (0.00-0.03) X10*3/uL Absolute Neuts (auto) (2.0-8.3) x10*3/uL Absolute Nucleated RBC (0.0-0.012) X10*3/uL Nucleated RBC % (auto) (0.0-0.2) /100WBC PT (9.9-13.0) SEC INR (0.9-1.1) APTT (24.1-38.0) SEC D-Dimer High Sensitivty NG/ML VBG pH (7.32-7.43) VBG pCO2 mmHg VBG pO2 mmHg VBG HCO3 (22-26) mmol/L VBG O2 Saturation % VBG Base Excess mmol/L Sodium (135-145) mmol/L Potassium (3.3-5.1) mmol/L Chloride (96-108) mmol/L Carbon Dioxide (22-29) mmol/L Anion Gap (12-20) BUN (9-16) mg/dL Creatinine (0.5-1.4) mg/dL Estim Creat Clear Calc Estimated GFR Random Glucose (60-115) mg/dL Lactic Acid 0.9 (0.5-2.0) mmol/L Calcium (8.4-10.2) mg/dL Magnesium (1.6-2.6) mg/dL Total Bilirubin (0.0-1.0) mg/dL Direct Bilirubin (0.0-0.5) mg/dL AST (5-37) U/L ALT (0-40) U/L Alkaline Phosphatase (39-117) U/L Lactate Dehydrogenase (118-273) U/L Total Creatine Kinase (38-174) U/L Troponin I High Sens (<3.5-35.0) ng/L C-Reactive Protein (< or = 0.50) mg/dL Total Protein (6.5-8.0) g/dL Albumin (3.5-5.0) g/dL COVID-19 ([facility]) (Negative) COVID-19 Clin Com ECG Data Attestation: I personally reviewed and interpreted this ECG as follows: Interpretation: Rate: 80 Rhythm: NSR [place]: left Normal P waves. Normal TG. incom RBBB ST T wave : no JOSE RAFAEL, nonspecific, artifact noted qTC: normal prior studies: no acute ischemia The study has been interpreted contemporaneously by me. . Discharge Plan Discharge Clinical Impression: 2019 novel coronavirus-infected pneumonia (NCIP), Hypoxia Patient Disposition: Admitted As Inpatient Prescriptions: No Action Enbrel SureClick 50 mg/mL (1 mL) pen injector 50 mg subcut QWEEK Qty: 4 RF: 3 montelukast 10 mg tablet 1 tab PO DAILY RF: 0 budesonide-formoterol 160-4.5 mcg/actuation HFA aerosol inhaler 1 puff inhalation DAILY RF: 0 albuterol sulfate 90 mcg/actuation HFA aerosol inhaler 2 puff inhalation Q6H PRN (Reason: Shortness Of Breath) RF: 0
[2021-03-31] MEDS: dexAMETHasone sod phosphate 4 MG/ML VIAL 6 MG IVPUSH (12:55)
[2021-03-31 13:00] LABS: MANUAL DIFF FLAG NO
[2021-03-31 13:04] LABS: Venous Blood Gas Refer to POC result
[2021-03-31 13:05] LABS: VBG Base Excess 1.4 mmol/L; VBG HCO3 25 mmol/L (22-26); VBG pCO2 39 mmHg; VBG pH 7.42 (7.32-7.43); VBG pO2 35 mmHg
[2021-03-31 13:06] LABS: Basophils Percent Auto 0.2 % (0-2); Eosinophils Percent Auto 0.5 % (0-4); Hematocrit 42.8 % (42.0-52.0); Hemoglobin 14.5 g/dl (14.0-18.0); Imm Gran Abs Auto 0.03 X10*3/uL (0.00-0.03); Imm Gran Pct Auto 0.5 % (0.0-0.4); Lymphocytes Percent Auto 18.4 % (20-40); Mean Corpuscular HGB Conc 33.9 g/dl (31.0-36.0); Mean Corpuscular Hemoglobin 29.5 pg (27.0-33.0); Mean Corpuscular Volume 87.2 fL (80.0-98.0); Mean Platelet Volume 10.4 fL (9.4-12.4); Monocytes Absolute Auto 0.4 X10*3/uL (0.1-1.2); Monocytes Percent Auto 6.8 % (2-11); Neutrophils Absolute Auto 4.1 x10*3/uL (2.0-8.3); Neutrophils Percent Auto 73.6 % (45-73); Platelet Count 172 X10*3/uL (160-400); Red Blood Count 4.91 X10*6/uL (4.60-5.80); Red Cell Distribution Width 14.9 % (11.0-16.0); White Blood Count 5.6 X10*3/uL (4.8-10.8)
[2021-03-31 13:11] LABS: COVID-19 Test Positive (Negative); INTERNATIONAL NORM RATIO 1.2 (0.9-1.1)
[2021-03-31 13:14] LABS: D Dimer High Sensitivity 735 NG/ML; Partial Thromboplastin Time 26.5 SEC (24.1-38.0)
[2021-03-31 13:24] LABS: Troponin-I High Sensitivity 19.3 ng/L (<3.5-35.0)
--- NOTE | 2021-03-31 13:31 | PHA.MEDREC ---
Pharmacy Consult ? Medication Reconciliation Pharmacy has completed the medication reconciliation. Margo EdwardD BCPS
[2021-03-31] MEDS: Acetaminophen 325 MG TABLET 650 MG PO (13:47)
[2021-03-31] MEDS: cefTRIAXone sodium 1 GM in 0.9 % Sodium Chloride 50 ML IV (13:48)
--- NOTE | 2021-03-31 13:53 | PC.NURSE ---
Pt received from waiting room already triaged Pt states he has not been feeling well since approx 03/17 following a trip to [place]. Pt states he has had increased fatigue, cough and weakness. Pt hx of asthma. Pt AOx4, lung exp wheeze auscultated with rounded non-tender abd. NSR. IV placed and pt receiving IV ABT. RN will continue to monitor.
[2021-03-31 14:59] LABS: Lactic Acid 0.9 mmol/L (0.5-2.0)
[2021-03-31 15:09] LABS: Alanine Aminotransferase 23 U/L (0-40); Albumin Level 3.7 g/dL (3.5-5.0); Alkaline Phosphatase 49 U/L (39-117); Anion Gap 13 (12-20); Aspartate Amino Transferase 49 U/L (5-37); Bilirubin Direct 0.4 mg/dL (0.0-0.5); Bilirubin Total 0.6 mg/dL (0.0-1.0); Blood Urea Nitrogen 10 mg/dL (9-16); C Reactive Protein 11.09 mg/dL (< or = 0.50); Calcium 8.6 mg/dL (8.4-10.2); Carbon Dioxide 23 mmol/L (22-29); Chloride 100 mmol/L (96-108); Creatinine Clr Calc Pharmacy 94.4; Estimated Glomerular Filt Rate > 60; Glucose Random 114 mg/dL (60-115); Lactate Dehydrogenase 321 U/L (118-273); Magnesium 2.1 mg/dL (1.6-2.6); Potassium 4.2 mmol/L (3.3-5.1); Sodium 132 mmol/L (135-145); Total Protein 6.9 g/dL (6.5-8.0)
[2021-03-31] MEDS: Azithromycin 500 MG in 0.9 % Sodium Chloride 250 ML 125 MG IV (15:26)
[2021-03-31 16:11] LABS: Ferritin 1616 ng/mL (20-250)
--- NOTE | 2021-03-31 16:11 | P.HPHOSP_ITS ---
History of Present Illness Date of Service: 03/31/21 Attending physician on admission: Joey Ramirez Chief Complaint: Dizziness 76-year-old gentleman with past medical history significant for rheumatoid arthritis and asthma presented to [facility] due to symptoms of dizziness, cough and forgetfullness that started from March 17, patient is unvaccinated, diagnosed to have COVID on 03/26, patient denies fever, no chills , no shortness of breath, but has been having palpitation with walking and movement, feels weak and feels lightheaded, in the emergency room noted to have hypoxia Oxygenation improved with 2 L of oxygen, COVID-19 test is positive. Patient is hard of hearing. Review of Systems Review of Systems: Constitutional: Denies fever, denies Chills CVS: denies chest pain, positive palpitation Respiratory:? Dry cough GI: no abdominal pain, no nausea no vomiting : denies dysuria MSK: denies neck pain Skin: denies rash Neuro: denies specific motor weakness Hematologic: denies easy bleeding Allergy: denies rash Yes all other systems are reviewed and are negative [facility] Medical History Acute rheumatoid arthritis Gout Seropositive rheumatoid arthritis Pertinent family history: No history of lung cancer or premature coronary artery disease. Surgical History H/O eye surgery History of knee surgery Social History Household Members: Spouse Housing: House Do you presently have visiting nurse or other home services: No Alcohol intake: current Alcohol intake frequency: holidays/special occasions only Alcohol type: wine Patient Tobacco Use Status: Former Tobacco user Use of substances other than those prescribed or required for medical reasons: No Currently Displaying Signs/Symptoms of Drug Intoxication Withdrawal: No Have you been hit, kicked, punched, or otherwise hurt by someone within the past year? If so, by whom?: No Do you feel safe in your current relationship?: Yes Is there a partner from a previous relationship who is making you feel unsafe now?: No Are you made to feel afraid or neglected: No Advance Directives: No Advance Directives Information Provided: No Do you have thoughts of harming others: None Do you have a plan to hurt others: No Plan Recently lost weight without trying: No Nutrition Risks: No Nutritional Risk service: Yes Current occupational status: retired Meds Allergies Allergy/AdvReac Type Severity Reaction Status Date / Time Yhbdlkz-NCE-AcC Reductase Allergy Severe HIVES Verified 02/12/21 08:54 Inhibitor [WLKPWAG-GPO-HOP REDUCTASE INHIBITOR] methotrexate AdvReac Intermediate visual Verified 02/12/21 08:54 disturbance Active Medications: Current Medications Acetaminophen (Acetaminophen 325 Mg Tablet) 650 mg PO Q6H PRN PRN Reason: Pain, Mild (Pain Scale 1-3) Albuterol Sulfate (Albuterol Sulfate 90 Mcg 8 Gm Inhaler) 2 puff INHALE Q6H PRN PRN Reason: Shortness Of Breath Ascorbic Acid (Ascorbic Acid 500 Mg Tablet) 500 mg PO DAILY [facility] Dexamethasone Sodium Phosphate (Dexamethasone Sod Phosphate 4 Mg/Ml Vial) 6 mg IVPUSH DAILY [facility] Enoxaparin Sodium (Enoxaparin Sodium 40 Mg/0.4 Ml Syringe) 40 mg SUBCUT Q24H [facility] Famotidine (Famotidine 20 Mg Tablet) 20 mg PO BID [facility] Guaifenesin/Dextromethorphan (Guaifenesin Dm 200/20/10 Ml 10 Ml Syrup) 10 ml PO Q6H PRN PRN Reason: cough Montelukast Sodium (Montelukast Sodium 10 Mg Tablet) 10 mg PO DAILY [facility] Non-Formulary Medication (Budesonide-Formoterol) 1 puff INHALE DAILY [facility] Ondansetron HCl (Ondansetron Hcl 4 Mg/2 Ml Vial) 4 mg IVPUSH Q8H PRN PRN Reason: Nausea and Vomiting Pharmacy Consult (Consult Rx Perform Med Rec) 1 each MISCELLANE ONCE PRN PRN Reason: Consult order Sodium Chloride (0.9 % Sodium Chloride Flush 3 Ml Syringe) 3 ml IVFLUSH QSHIFT [facility] Home Medications Medication Instructions Recorded Confirmed Last Taken Type albuterol sulfate 90 mcg/actuation 2 puff INHALATION Q6H PRN 05/11/20 03/31/21 Unknown History aerosol inhaler budesonide-formoterol HFA 160 1 puff INHALATION DAILY g 05/11/20 03/31/21 Unknown History mcg-4.5 mcg/actuation aerosol inhaler montelukast 10 mg tablet 1 tab PO DAILY 03/31/21 03/31/21 Unknown History Physical Exam Vital Signs and Narrative: Vital Signs: Last Vital Signs Temp 98.1 F 03/31/21 15:26 Pulse 70 03/31/21 15:26 Resp 18 03/31/21 15:26 BP 129/80 03/31/21 15:26 Pulse Ox 94 03/31/21 15:26 BMI result Body Mass Index 36.1 General awake alert x3, no acute distress. Neck no JVD. CVS regular rate rhythm, Respiratory lungs clear to auscultation, no respiratory distress, no wheeze, no rhonchi. Gastrointestinal abdomen obese, soft, nontender, bowel sounds audible, no guarding , no rigidity. Extremities no edema. no CVA tenderness Neuro nonfocal , moving all 4 extremity, hard of hearing Skin no rash Psych appropriate affect Results Labs CBC and Chem 7: 03/31/21 12:49 03/31/21 14:42 Labs: Laboratory Results - last 24 hr 03/31/21 03/31/21 03/31/21 12:49 12:49 12:49 MCV 87.2 MCH 29.5 MCHC 33.9 RDW 14.9 Plt Count 172 MPV 10.4 Immature Gran % (Auto) 0.5 H Neut % (Auto) 73.6 H Lymph % (Auto) 18.[address] [place] % (Auto) 6.8 Eos % (Auto) 0.5 Baso % (Auto) 0.2 Lymph # (Auto) 1.[address] [place] # (Auto) 0.4 Eos # (Auto) 0.0 Baso # (Auto) 0.0 Abs Immat Gran (auto) 0.03 Absolute Neuts (auto) 4.1 Absolute Nucleated RBC 0.000 Nucleated RBC % (auto) 0.0 PT 14.0 H INR 1.2 H APTT 26.5 D-Dimer High Sensitivty 735 VBG pH VBG pCO2 VBG pO2 VBG HCO3 VBG O2 Saturation VBG Base Excess Anion Gap Estim Creat Clear Calc Estimated GFR Random Glucose Lactic Acid Calcium Magnesium Total Bilirubin Direct Bilirubin AST ALT Alkaline Phosphatase Lactate Dehydrogenase Total Creatine Kinase Troponin I High Sens C-Reactive Protein Total Protein Albumin Procalcitonin COVID-19 ([facility]) Positive A COVID-19 Clin Com See Note 03/31/21 03/31/21 03/31/21 12:50 12:57 14:42 MCV MCH MCHC RDW Plt Count MPV Immature Gran % (Auto) Neut % (Auto) Lymph % (Auto) [place] % (Auto) Eos % (Auto) Baso % (Auto) Lymph # (Auto) [place] # (Auto) Eos # (Auto) Baso # (Auto) Abs Immat Gran (auto) Absolute Neuts (auto) Absolute Nucleated RBC Nucleated RBC % (auto) PT INR APTT D-Dimer High Sensitivty VBG pH 7.42 VBG pCO2 39 VBG pO2 35 VBG HCO3 25 VBG O2 Saturation 59.0 VBG Base Excess 1.4 Anion Gap 13 Estim Creat Clear Calc 94.4 Estimated GFR > 60 Random Glucose 114 Lactic Acid Calcium 8.6 D Magnesium 2.1 Total Bilirubin 0.6 Direct Bilirubin 0.4 AST 49 H D ALT 23 Alkaline Phosphatase 49 D Lactate Dehydrogenase 321 H Total Creatine Kinase 688 H Troponin I High Sens 19.3 C-Reactive Protein 11.09 H Total Protein 6.9 Albumin 3.7 Procalcitonin COVID-19 ([facility]) COVID-19 [employer] 03/31/21 03/31/21 14:42 14:43 MCV MCH MCHC RDW Plt Count MPV Immature Gran % (Auto) Neut % (Auto) Lymph % (Auto) [place] % (Auto) Eos % (Auto) Baso % (Auto) Lymph # (Auto) [place] # (Auto) Eos # (Auto) Baso # (Auto) Abs Immat Gran (auto) Absolute Neuts (auto) Absolute Nucleated RBC Nucleated RBC % (auto) PT INR APTT D-Dimer High Sensitivty VBG pH VBG pCO2 VBG pO2 VBG HCO3 VBG O2 Saturation VBG Base Excess Anion Gap Estim Creat Clear Calc Estimated GFR Random Glucose Lactic Acid 0.9 Calcium Magnesium Total Bilirubin Direct Bilirubin AST ALT Alkaline Phosphatase Lactate Dehydrogenase Total Creatine Kinase Troponin I High Sens C-Reactive Protein Total Protein Albumin Procalcitonin 0.10 COVID-19 ([facility]ER) COVID-19 [employer] Com Imaging Radiologist's Impressions: Impressions Chest X-Ray 03/31/21 12:30 IMPRESSION: Mild bilateral patchy opacities are nonspecific, but suggest an infectious/inflammatory process. COVID 19 can demonstrate this appearance. Correlate clinically. Assessment and Plan (1) 2019 novel coronavirus-infected pneumonia (NCIP): Status: Acute (2) Hypoxia: Status: Acute (3) Seropositive rheumatoid arthritis: Status: Acute 76-year-old gentleman with past medical history of rheumatoid arthritis presented due to symptoms of generalized weakness palpitation forgetfulness and dizziness and diagnosed to have COVID infection with hypoxic respiratory failure Acute hypoxic respiratory failure secondary to COVID-[address] on IV Decadron, Pepcid, vitamin-C, cough medication,wean oxygen as tolerated Noted to have elevated COVID marker, CRP 11.09, LDH 321, CK 688, procalcitonin 0.10 Seropositive rheumatoid arthritis,Will hold etanercept, no acute flare. History of asthma no acute exacerbation, continue home inhalers DVT prophylaxis with subQ Lovenox GI prophylaxis with Pepcid Code status full code Quality Stroke Does the patient have a stroke diagnosis?: No VTE Prior VTE?: No VTE Risk Level:: Medical - moderate - high VTE Device Contraindication: Treatment Not Indicated VTE Drug Contraindication: N/A - Med Ordered
[2021-03-31] MEDS: Enoxaparin Sodium 40 MG/0.4 ML SYRINGE SUBCUT (16:51)
[2021-03-31] MEDS: 0.9 % Sodium Chloride Flush 3 ML SYRINGE IVFLUSH (21:23)
[2021-03-31] MEDS: Famotidine 20 MG TABLET PO (21:23)
[2021-04-01] VITALS (7 sets, daily range): BP systolic 113–163; BP diastolic 68–93; PULSE 55–99; RESP 16–20; TEMP 35.8–36.9; O2SAT 93–97
[2021-04-01] MEDS: Fluticasone/Vilanterol 200/25 BLST.W.DEV 1 PUFF INHALE (07:55)
[2021-04-01] MEDS: dexAMETHasone sod phosphate 4 MG/ML VIAL 6 MG IVPUSH (08:39)
[2021-04-01] MEDS: 0.9 % Sodium Chloride Flush 3 ML SYRINGE IVFLUSH ×3 (08:39→20:07)
[2021-04-01] MEDS: Famotidine 20 MG TABLET PO ×2 (08:39→20:07)
[2021-04-01] MEDS: Montelukast Sodium 10 MG TABLET PO (08:39)
--- NOTE | 2021-04-01 11:11 | MHC.CM.PN ---
Lives in in-law apartment w/ at daughter's house. Still drives, independent, no previous services or equipment. Per Bc (son), patient's daughter/daughter's , patient and patient's (also hospitalized) all recovering from COVID at this time. Plan is home w/family via family at time of D/C. Ariela is daughter and primary contact: [phone].
--- NOTE | 2021-04-01 13:10 | P.PNIM_ITS ---
Subjective Subjective Date of Service: 04/01/21 Interval History: being followed for hypoxic respiratory failure, feeling better, denies shortness of breath , no cough, palpitations resolved, no other acute symptoms Review of Systems General no headache, no dizziness, no fever chills. CVS no chest pain, no palpitation. Respiratory no cough, no sputum production, no respiratory distress. Gastrointestinal no nausea, no vomiting, no abdominal pain Review of Systems: Yes all other systems are reviewed and are negative Physical Exam Vital Signs: Vital Signs: Last Vital Signs Temp 97.2 F 04/01/21 11:44 Pulse 62 04/01/21 11:44 Resp 18 04/01/21 11:44 BP 113/68 04/01/21 11:44 Pulse Ox 94 04/01/21 11:44 BMI result Body Mass Index 36.6 Objective Data Active Medications Acetaminophen (Acetaminophen 325 Mg Tablet) 650 mg PO Q6H PRN PRN Reason: Pain, Mild (Pain Scale 1-3) Albuterol Sulfate (Albuterol Sulfate 90 Mcg 8 Gm Inhaler) 2 puff INHALE Q6H PRN PRN Reason: Shortness Of Breath Ascorbic Acid (Ascorbic Acid 500 Mg Tablet) 500 mg PO DAILY [facility] Last Admin: 04/01/21 09:02 Dose: Not Given Documented by: LIZETT Non-Admin Reason: Patient Refused Dexamethasone Sodium Phosphate (Dexamethasone Sod Phosphate 4 Mg/Ml Vial) 6 mg IVPUSH DAILY [facility] Last Admin: 04/01/21 08:39 Dose: 6 mg Documented by: LIZETT Enoxaparin Sodium (Enoxaparin Sodium 40 Mg/0.4 Ml Syringe) 40 mg SUBCUT Q24H [facility] Last Admin: 03/31/21 16:51 Dose: 40 mg Documented by: KATY-MALIR Famotidine (Famotidine 20 Mg Tablet) 20 mg PO BID [facility] Last Admin: 04/01/21 08:39 Dose: 20 mg Documented by: LIZETT Fluticasone/Vilanterol (Fluticasone/Vilanterol 200/25 Blst.W.Dev) 1 puff INHALE DAILY [facility] Last Admin: 04/01/21 07:55 Dose: 1 puff Documented by: JAKE Guaifenesin/Dextromethorphan (Guaifenesin Dm 200/20/10 Ml 10 Ml Syrup) 10 ml PO Q6H PRN PRN Reason: cough Montelukast Sodium (Montelukast Sodium 10 Mg Tablet) 10 mg PO DAILY [facility] Last Admin: 04/01/21 08:39 Dose: 10 mg Documented by: LIZETT Ondansetron HCl (Ondansetron Hcl 4 Mg/2 Ml Vial) 4 mg IVPUSH Q8H PRN PRN Reason: Nausea and Vomiting Pharmacy Consult (Consult Rx Perform Med Rec) 1 each MISCELLANE ONCE PRN PRN Reason: Consult order Sodium Chloride (0.9 % Sodium Chloride Flush 3 Ml Syringe) 3 ml IVFLUSH QSHIFT [facility] Last Admin: 04/01/21 08:39 Dose: 3 ml Documented by: LIZETT Labs CBC & Chem 7: 03/31/21 12:49 03/31/21 14:42 Labs: Laboratory Results - last 24 hr 03/31/21 03/31/21 03/31/21 12:49 12:49 12:50 PT 14.0 H INR 1.2 H APTT 26.5 D-Dimer High Sensitivty 735 Anion Gap Estim Creat Clear Calc Estimated GFR Random Glucose Lactic Acid Calcium Magnesium Ferritin Total Bilirubin Direct Bilirubin AST ALT Alkaline Phosphatase Lactate Dehydrogenase Total Creatine Kinase Troponin I High Sens 19.3 C-Reactive Protein Total Protein Albumin Procalcitonin COVID-19 ([facility]) Positive A COVID-19 Clin Com See Note 03/31/21 03/31/21 03/31/21 14:42 14:42 14:43 PT INR APTT D-Dimer High Sensitivty Anion Gap 13 Estim Creat Clear Calc 94.4 Estimated GFR > 60 Random Glucose 114 Lactic Acid 0.9 Calcium 8.6 D Magnesium 2.1 Ferritin 1616 H Total Bilirubin 0.6 Direct Bilirubin 0.4 AST 49 H D ALT 23 Alkaline Phosphatase 49 D Lactate Dehydrogenase 321 H Total Creatine Kinase 688 H Troponin I High Sens C-Reactive Protein 11.09 H Total Protein 6.9 Albumin 3.7 Procalcitonin 0.10 COVID-19 ([facility]) COVID-19 Clin Com Assessment and Plan (1) 2019 novel coronavirus-infected pneumonia (NCIP): Status: Acute (2) Hypoxia: Status: Acute (3) Seropositive rheumatoid arthritis: Status: Acute Assessment and Plan: 76-year-old gentleman with past medical history of rheumatoid arthritis presented due to symptoms of generalized weakness palpitation forgetfulness and dizziness and diagnosed to have COVID infection with hypoxic respiratory failure Acute hypoxic respiratory failure secondary to COVID-19 pneumonia Feeling better Continue IV Decadron, Pepcid, vitamin-C, cough medication,wean oxygen as tolerated Noted to have elevated COVID marker, CRP 11.09, LDH 321, CK 688, procalcitonin 0.10 Seropositive rheumatoid arthritis, hold etanercept, no acute flare. History of asthma no acute exacerbation, continue home inhalers. DVT prophylaxis with subQ Lovenox. GI prophylaxis with Pepcid Code status full code Quality Stroke Does the patient have a stroke diagnosis?: No VTE Prior VTE?: No VTE Risk Level:: Medical - moderate - high VTE Device Contraindication: Treatment Not Indicated VTE Drug Contraindication: N/A - Med Ordered
[2021-04-01] MEDS: Enoxaparin Sodium 40 MG/0.4 ML SYRINGE SUBCUT (17:03)
[2021-04-02 04:00] VITALS: BP 139/88; PULSE 66; RESP 20; TEMP 36.9; O2SAT 97
[2021-04-02 08:00] VITALS: BP 122/64; PULSE 77; RESP 20; TEMP 36.7; O2SAT 93
--- NOTE | 2021-04-02 09:09 | PM.DS ---
DS: Providers Provider Date of Service: 04/02/21 Date of admission: 03/31/21 16:05 Primary care physician: Rhiannon Lester MD DS: Diagnosis Discharge Diagnosis (1) 2019 novel coronavirus-infected pneumonia (NCIP): Status: Acute (2) Hypoxia: Status: Acute (3) Seropositive rheumatoid arthritis: Status: Acute DS: Summary Hospital Course Hospital Course: Patient was admitted for acute hypoxic respiratory failure secondary to COVID pneumonia. He was treated with IV Decadron, Pepcid, vitamin-C. His symptoms improved. He was able to ambulate on room air with minimal shortness of breath. He will be discharged home and complete 7 more days of oral Decadron. Time Spent with Patient Time attestation: Total time spent providing and/or coordinating discharge services: Discharge coordination time: Greater than 30 minutes Quality: Stroke Does the patient have a stroke diagnosis?: No Physical Exam Vital Signs: Vital Signs: Last Vital Signs Temp 98.0 F 04/02/21 08:00 Pulse 77 04/02/21 08:00 Resp 20 04/02/21 08:00 BP 122/64 04/02/21 08:00 Pulse Ox 93 04/02/21 08:00 BMI result Body Mass Index 36.6 General: AO X 3, no acute distress Resp: CTA bilateral, no accessory muscles used CVS: S1,S2,RRR GI: soft, non tender, non distended Neuro: motor grossly intact, alert Psych: appropriate affect, appropriate insight DS: Data Data Completed and Pending Labs on day of discharge: Preliminary micro results at discharge 03/31/21 13:18 Blood Culture - Preliminary Blood - Venous No growth after 24 hours. 03/31/21 13:02 Blood Culture - Preliminary Blood - Venous No growth after 24 hours. Discharge Plan Discharge Patient Disposition: Home, Self-Care Discharge Diagnosis: covid Referrals: Rhiannon Lester MD [Primary Care Provider] - 1 Week Discharge Medications: New dexamethasone [Decadron] 6 mg tablet 6 mg PO DAILY Qty: 7 RF: 0 Continued Enbrel SureClick 50 mg/mL (1 mL) pen injector 50 mg subcut QWEEK Qty: 4 RF: 3 montelukast 10 mg tablet 1 tab PO DAILY RF: 0 budesonide-formoterol 160-4.5 mcg/actuation HFA aerosol inhaler 1 puff inhalation DAILY RF: 0 albuterol sulfate 90 mcg/actuation HFA aerosol inhaler 2 puff inhalation Q6H PRN (Reason: Shortness Of Breath) RF: 0 Discharge Orders: Discharge Order (Routine); Ordered 04/02/21 Ordered By: Leo Miranda Diet: advance to usual diet Activity on Discharge: As tolerated Stand Alone Forms: Patient Portal Discharge page Care Plan Goals: recovery Health Concerns: covid Plan of Treatment: 7 more days decadron Assessment: see above
--- NOTE | 2021-04-02 09:18 | MHC.CM.PN ---
Patient has been medically cleared for dc to home today, no services.
[2021-04-02] MEDS: Famotidine 20 MG TABLET PO (10:17)
[2021-04-02] MEDS: Montelukast Sodium 10 MG TABLET PO (10:17)
[2021-04-02] MEDS: Ascorbic Acid 500 MG TABLET PO (10:17)
== END 2021-04-02 10:52 | disposition home or self-care (01) | DRG 177 ==
LOC: HO.ED 15:23 → HO.EDOVER 16:26 → HO.IMC 19:10
PROVIDERS: Admitting Provider Hospitalist; Emergency Provider Emergency Medicine; PCP Family Medicine; Visit Provider Internal Medicine
DX: U07.1 COVID-19 (principal); J12.82 Pneumonia due to coronavirus disease 2019; J96.01 Acute respiratory failure with hypoxia; M05.9 Rheumatoid arthritis with rheumatoid factor, unspecified; J45.909 Unspecified asthma, uncomplicated; Z79.899 Other long term (current) drug therapy
CPT/HCPCS: 36415; 71045; 80048; 80076; 82550; 82728; 82803; 83605; 83615; 83735; 84145; 84484; 85025; 85379; 85610; 85730; 86140; 87040; 87635; 93005; 94640; 96365; 96367; 96375; 99285; J0456; J0696; J1100; J1650

== ENCOUNTER → 2021-05-15 08:35 | Outpatient (BNVA) | payer OTHER, SELFPAY | PROVIDERS: PCP Family Medicine; Visit Provider Nurse Practitioner Family | DX: M05.9 Rheumatoid arthritis with rheumatoid factor, unspecified (principal); M10.9 Gout, unspecified; M85.80 Other specified disorders of bone density and structure, unspecified site | CPT/HCPCS: 99212 ==

== ENCOUNTER 2021-05-18 09:53 | Outpatient (REF) | payer OTHER, SELFPAY ==
[2021-05-18 10:14] LABS: MANUAL DIFF FLAG NO
[2021-05-18 10:52] LABS: Basophils Absolute Auto 0.1 X10*3/uL (0.0-0.2); Eosinophils Absolute Auto 0.5 X10*3/uL (0.0-0.4); Eosinophils Percent Auto 6.7 % (0-4); Hematocrit 44.8 % (42.0-52.0); Hemoglobin 14.5 g/dl (14.0-18.0); Imm Gran Abs Auto 0.03 X10*3/uL (0.00-0.03); Imm Gran Pct Auto 0.4 % (0.0-0.4); Lymphocytes Absolute Auto 2.2 X10*3/uL (1.2-4.9); Lymphocytes Percent Auto 31.1 % (20-40); Mean Corpuscular HGB Conc 32.4 g/dl (31.0-36.0); Mean Corpuscular Hemoglobin 29.7 pg (27.0-33.0); Mean Corpuscular Volume 91.8 fL (80.0-98.0); Mean Platelet Volume 9.9 fL (9.4-12.4); Monocytes Absolute Auto 0.9 X10*3/uL (0.1-1.2); Monocytes Percent Auto 12.6 % (2-11); Neutrophils Absolute Auto 3.4 x10*3/uL (2.0-8.3); Neutrophils Percent Auto 48.2 % (45-73); Platelet Count 261 X10*3/uL (160-400); Red Blood Count 4.88 X10*6/uL (4.60-5.80); Red Cell Distribution Width 14.9 % (11.0-16.0)
[2021-05-18 11:18] LABS: Alanine Aminotransferase 11 U/L (0-40); Alkaline Phosphatase 61 U/L (39-117); Anion Gap 12 (12-20); Aspartate Amino Transferase 16 U/L (5-37); Bilirubin Total 0.7 mg/dL (0.0-1.0); Blood Urea Nitrogen 11 mg/dL (9-16); C Reactive Protein 0.17 mg/dL (< or = 0.50); Calcium 9.7 mg/dL (8.4-10.2); Carbon Dioxide 30 mmol/L (22-29); Chloride 102 mmol/L (96-108); Estimated Glomerular Filt Rate > 60; Glucose Random 102 mg/dL (60-115); Potassium 4.7 mmol/L (3.3-5.1); Sodium 139 mmol/L (135-145); Total Protein 7.4 g/dL (6.5-8.0); Uric Acid 7.4 mg/dL (3.4-7.0)
[2021-05-18 11:30] LABS: Erythrocyte Sedimentation Rate 16 MM/HR (0-15)
== END 2021-05-18 09:54 | disposition home or self-care (01) ==
LOC: HO.LAB 09:53
PROVIDERS: PCP Family Medicine; Visit Provider Nurse Practitioner Family
DX: M05.9 Rheumatoid arthritis with rheumatoid factor, unspecified (principal); M10.9 Gout, unspecified
CPT/HCPCS: 36415; 80053; 84550; 85025; 85652; 86140

== ENCOUNTER 2021-05-28 09:29 | Emergency (ER) | payer OTHER, SELFPAY ==
--- NOTE | ~2021-05-28 | CT_ITS ---
EXAMINATION: CT BRAIN AND CT CERVICAL SPINE WITHOUT CONTRAST. CLINICAL INFORMATION: Fall with head injury. COMPARISON: None TECHNIQUE: 5 mm thin axial and reformatted 2 mm thin sagittal and coronal images of brain were obtained. Axial 3 mm thin and reformatted 2 mm thin sagittal and coronal images of cervical spine were obtained. DLP [id number] FINDINGS: Brain: There is no acute intra-axial, extra-axial bleed, masses or midline shift. There is no acute infarction evolution. There is no edema. The lateral ventricles are symmetrical in size and configuration but enlarged. There is diffuse periventricular hypodensity suggestive of chronic small vessel ischemic changes. There is moderate midline high parietal scalp hematoma without calvarial fracture. There is mild mucoperiosteal thickening bilateral ethmoid and and bilateral maxillary sinuses. Cervical spine: On sagittal reconstructed images there is mild straightening of cervical lordosis. There is grade 1 anterolisthesis C4 over C5. Mild loss of C6-C7 and C7-T1 disc heights is noted. There is moderate ventral spondylosis. No lytic or sclerotic process seen. The craniovertebral junction and the C1-C2 alignment is normal. There is moderate right C4-C5, C5-C6 facet joint arthropathy and hypertrophy. There are hypertrophic bony changes along the tip of C7 spinous process likely fracture CT/CT cervical spine wo con IMPRESSION: Degenerative disc changes with ventral spondylosis C6-C7 and C7-T1 disc levels. There is grade 1 anterolisthesis C4 over C5. There is no acute fracture or dislocation cervical spine. There is old fracture C7 spinous process with hypertrophic bony changes/callus formation. High parietal midline scalp hematoma without calvarial fracture. No acute intracranial process seen. Bilateral frontal and maxillary chronic sinus inflammatory changes.
[2021-05-28 09:40] VITALS: BP 145/84; PULSE 62; RESP 16; TEMP 35.9; O2SAT 100; BMI 35.2
--- NOTE | 2021-05-28 10:03 | ED_ITS ---
HPI - Fall General Chief Complaint: Fall Stated Complaint: Fall/head inj Time Seen by Provider: 05/28/21 10:03 Source: patient and family (daughter) Mode of arrival: ambulatory Limitations: no limitations History of Present Illness HPI Narrative: Patient is a 76 year old male presenting to the emergency department today after a fall. Patient states that he was outside walking when he slipped and fell, hitting his head. Patient denies any loss of conciousness with the incident. Patient denies any other injuries from the incident. Patient states that he didn't know he hit his head that hard until he realized he was bleeding. Patient denies any dizziness, lightheadedness, abdominal pain, nausea, vomiting, fever, chills, blurry vision, double vision, loss of vision, chest pain, difficulty breathing, shortness of breath, back pain, night sweats, pain with urination, increased urinary frequency, increased urinary urgency, blood in his urine or stool, syncope or a near syncopal episode, bowel incontinence, bladder incontinence, bowel retention, bladder retention, or any other complaints at this time. Patient denies any anti-coagulant use. MD complaint: fall Onset (ago): minute(s) Fall from: standing Fall witnessed: no Place fall occurred: home Loss of consciousness: none Prolonged down time: no Symptoms prior to fall: none Context: tripped/slipped Location of injury: head Associated symptoms (after fall): denies Related Data Home Medications Medication Instructions Recorded Confirmed albuterol sulfate 90 2 puff INHALATION Q6H PRN 05/11/20 05/15/21 mcg/actuation aerosol inhaler budesonide-formoterol HFA 160 1 puff INHALATION DAILY g 05/11/20 03/31/21 mcg-4.5 mcg/actuation aerosol inhaler montelukast 10 mg tablet 1 tab PO DAILY 03/31/21 05/15/21 aspirin 81 mg tablet,delayed 162 mg PO DAILY 05/15/21 05/15/21 release (Adult Aspirin Regimen) Previous Rx's Medication Instructions Recorded etanercept 50 mg/mL (1 mL) 50 mg SUBCUT QWEEK #4 ml 03/06/21 subcutaneous pen injector (Enbrel SureClick) Allergies Allergy/AdvReac Type Severity Reaction Status Date / Time [id number] Allergy Severe HIVES Verified 05/15/21 09:12 Reductase Inhibitor [[id number] REDUCTASE INHIBITOR] methotrexate AdvReac Intermediate visual Verified 05/15/21 09:12 disturbance Review of Systems Verdana 4l Constitutional: Verdana 4d Verdana 4d Constitutional: Verdana 4d Reports no additional constitutional complaints, Denies chills, Denies fever(s) and Denies night sweats Verdana 4l Eyes: Verdana 4d Verdana 4d Eyes: Verdana 4d Reports no additional eye complaints, Denies blurry vision, Denies change in vision, Denies diplopia, Denies eye discharge, Denies loss of vision and Denies eye pain Verdana 4l ENT: Verdana 4d Denies dizziness Verdana 4l Cardiovascular: Verdana 4d Verdana 4d Cardiovascular: Verdana 4d Reports no additional cardiovascular complaints, Denies chest pain, Denies lightheadedness, Denies Loss of Consciousness and Denies dyspnea Verdana 4l Respiratory: Verdana 4d Verdana 4d Respiratory: Verdana 4d Reports no additional respiratory complaints and Denies dyspnea Verdana 4l Gastrointestinal: Verdana 4d Verdana 4d Gastrointestinal: Verdana 4d Reports no additional gastrointestinal complaints, Denies abdominal pain, Denies melena, Denies hematochezia, Denies change in bowel habits and Denies change in stool character Verdana 4l Genitourinary: Verdana 4d Verdana 4d Genitourinary: Verdana 4d Reports no additional male genitourinary complaints, Denies hematuria, Denies oliguria, Denies difficulty urinating, Denies dysuria, Denies urinary frequency, Denies urinary hesitancy, Denies urinary incontinenceincontinence and Denies urinary urgency Musculoskeletal: Musculoskeletal: Reports no additional musculoskeletal complaints, Denies numbness and Denies tingling Integumentary/Breasts: Comments: abrasion to the posterior head Neurologic: Denies dizziness, Denies loss of vision, Denies numbness and Denies tingling Psychiatric: Psychiatric: Reports no additional psychiatric complaints Endocrine: Endocrine: Reports no additional endocrine complaints Hematologic/Lymphatic: Hematologic/Lymphatic: Reports no additional hematologic/lymphatic complaints Allergic/Immunologic: Allergic/Immunologic: Reports no additional allergic/immunologic complaints PMFSH Past Medical History Attestation statement: The following information was validated with the patient. Source: old records reviewed Medical History Acute rheumatoid arthritis Gout Seropositive rheumatoid arthritis Surgical History H/O eye surgery History of knee surgery Social History Social History Household Members: Spouse Housing: House Do you presently have visiting nurse or other home services: No Alcohol intake: current Alcohol intake frequency: holidays/special occasions only Alcohol type: wine Patient Tobacco Use Status: Former Tobacco user Advance Directives: No Advance Directives Information Provided: No service: Yes Current occupational status: retired Physical Exam Verdana 4l Vital Signs: Verdana 4d Verdana 4d Vital Signs: Verdana 4d Verdana 4Bd Last Vital Signs Verdana 4d Planner Scheduler New 4d Planner Scheduler New 4d Temp 96.6 F L 05/28/21 09:40 Planner Scheduler New 4d Pulse 62 05/28/21 09:40 Planner Scheduler New 4d Resp 16 05/28/21 09:40 BP 145/84 H 05/28/21 09:40 Pulse Ox 100 05/28/21 09:40 BMI result Body Mass Index 35.2 Const: General: cooperative, no acute distress, alert and awake Nutritional Appearance: well nourished Orientation/consciousness: patient oriented x3 Limitations: no limitations HENMT: Head: Yes normal to inspection and Yes atraumatic Ears: hearing grossly normal bilaterally and external ears normal General nose exam: Normal external nose present, no nasal discharge noted and no epistaxis Face and sinus: Yes normal facial exam, No abrasion and No laceration Mouth: Normal oral and palatal mucosa present, no drooling and no muffled voice Eyes: General: appearance normal, both eyes and all related structures Periorbital: periorbital findings normal Eyelids: Yes eyelids normal Conjunctivae: conjunctivae normal Pupils: Equal, round and reactive pupils present EOM: EOMs intact bilaterally Neck: Neck: Yes normal visual inspection, Yes full ROM and Yes no lymphadenopathy Chest: Chest palpation & inspection: normal inspection of the chest Resp: Effort & Inspection: normal respiratory effort and able to speak in complete sentences Auscultation: clear to auscultation bilaterally Cardio: Rate: regular rate Rhythm: regular rhythm GI: Inspection: Yes normal to inspection Skin: Other: abrasion to the occiptal scalp, no active bleeding, no gaping areas Neuro: General: patient oriented x3 and moves all extremities Cranial nerves: Yes Equal, round and reactive pupils present Cognition (Neuro): normal cognition Motor exam (neuro): 5/5 motor strength present throughout Sensory Exam: Normal double simultaneous stimulation for sensation Coordination: [id number] test normal Extrem: General: Yes normal to inspection, Yes full ROM and Yes capillary refill normal Psych: Appearance: grossly normal Mental Status: mental status grossly normal Affect: normal affect Attitude: cooperative Thought process: Normal thought process present Thought content: Normal thought content present Insight: Good insight present (Psych) MDM - Fall MDM Narrative Medical decision making narrative: Patient is a 76 year old male presenting to the emergency department today after a slip and fall on the ice. Patient's physical exam showed a small abrasion to the posterior scalp with no active bleeding or gaping area. Patient's neurologic exam was negative including intact bilateral reflexes. Patient's head and C-Spine CT scans showed degenerative disc changes with ventral spondylosis C6-C7 and C7-T1 disc levels, grade 1 anterolisthesis C4 over C5, no acute fractures or dislocation cervical spine, old fracture of the C7 spinous process with hypertrophic bony changes/callus formation, high parietal midline scalp hematoma without calvarial fracture, no acute intracranial process seen, and bilateral frontal and maxillary chronic sinus inflammatory changes. I explained my physical exam findings as well as all test results to the patient and the patient's daughter. I answered all questions asked by the patient and the patient's daughter. I stressed the importance of the patient taking his regular medication as prescribed. I stressed the importance of the patient following up with his primary care provider. I stressed the importance of the patient returning to the emergency department immediately if his symptoms were to worsen or if he were to develop any numbness, tingling, dizziness, shortness of breath, difficulty breathing, chest pain, blurry vision, loss of vision, nausea, vomiting, abdominal pain, fever, chills, back pain, or any other complaints. Patient and the patient's daughter verbalized agreement and understanding with this treatment plan and discharge. Differential Diagnosis Differential diagnosis: Likely fracture (abrasion, head injury) and concussion without loss of consciousness Medical Records Attestation: I reviewed the patient's medical records. Imaging Data Head and C-Spine CT scans: Attestation: I personally reviewed and interpreted this imaging study as follows: Radiologist's impression: CT/CT head/brain wo con IMPRESSION: Degenerative disc changes with ventral spondylosis C6-C7 and C7-T1 disc levels. ? There is grade 1 anterolisthesis C4 over C5. There is no acute fracture or dislocation cervical spine. ? There is old fracture C7 spinous process with hypertrophic bony changes/callus formation. ? High parietal midline scalp hematoma without calvarial fracture. No acute intracranial process seen. ? Bilateral frontal and maxillary chronic sinus inflammatory changes. Dictated By: Drew Harris MD Signed By: Electronically signed by Drew Harris MD Discharge Plan Discharge Clinical Impression: Fall Patient Disposition: Home, Self-Care Instructions: Fall Prevention for Older Adults (ED), Fall Prevention (ED) Additional Instructions: Follow up with your primary care provider. Return to the emergency department immediately if your symptoms worsen or if you develop any numbness, tingling, dizziness, shortness of breath, difficulty breathing, chest pain, blurry vision, loss of vision, nausea, vomiting, abdominal pain, fever, chills, back pain, or any other complaints. Prescriptions: No Action Enbrel SureClick 50 mg/mL (1 mL) pen injector 50 mg subcut QWEEK Qty: 4 3RF montelukast 10 mg tablet 1 tab PO DAILY 0RF budesonide-formoterol 160-4.5 mcg/actuation HFA aerosol inhaler 1 puff inhalation DAILY 0RF albuterol sulfate 90 mcg/actuation HFA aerosol inhaler 2 puff inhalation Q6H PRN (Reason: Shortness Of Breath) 0RF aspirin [Adult Aspirin Regimen] 81 mg tablet,delayed release (DR/EC) 162 mg PO DAILY 0RF Referrals: Rhiannon Lester MD [Primary Care Provider] - 2 days Print Language: Persian
--- NOTE | 2021-05-28 11:06 | PC.NURSE ---
cleansed back of patient head as ordered by provider . large abrasion noted on back of head from fall . no open area noted area not actively bleeding . provider notified
== END 2021-05-28 11:59 | disposition home or self-care (01) ==
PROVIDERS: Emergency Provider Emergency Medicine; PCP Family Medicine
DX: S00.01XA Abrasion of scalp, initial encounter (principal); W00.0XXA Fall on same level due to ice and snow, initial encounter; Y93.01 Activity, walking, marching and hiking; Y92.014 Private driveway to single-family (private) house as the place of occurrence of the external cause; Y99.9 Unspecified external cause status
CPT/HCPCS: 70450; 72125; 99283; 99284

== ENCOUNTER 2021-08-13 11:25 | Outpatient (REF) | payer OTHER, SELFPAY | END 2021-08-13 11:26 | disposition home or self-care (01) | LOC: HO.LAB 11:25 | PROVIDERS: Visit Provider Nurse Practitioner Family | DX: Z13.89 Encounter for screening for other disorder (principal) ==

== ENCOUNTER 2021-08-14 10:52 | Outpatient (REF) | payer MEDICARE, OTHER, SELFPAY ==
[2021-08-14 11:23] LABS: MANUAL DIFF FLAG NO
[2021-08-14 12:02] LABS: Basophils Absolute Auto 0.1 X10*3/uL (0.0-0.2); Basophils Percent Auto 1.2 % (0-2); Eosinophils Absolute Auto 0.3 X10*3/uL (0.0-0.4); Hematocrit 44.7 % (42.0-52.0); Imm Gran Abs Auto 0.02 X10*3/uL (0.00-0.03); Imm Gran Pct Auto 0.3 % (0.0-0.4); Lymphocytes Absolute Auto 1.9 X10*3/uL (1.2-4.9); Lymphocytes Percent Auto 24.8 % (20-40); Mean Corpuscular HGB Conc 33.6 g/dl (31.0-36.0); Mean Corpuscular Hemoglobin 29.8 pg (27.0-33.0); Mean Corpuscular Volume 88.9 fL (80.0-98.0); Mean Platelet Volume 9.3 fL (9.4-12.4); Monocytes Absolute Auto 0.8 X10*3/uL (0.1-1.2); Monocytes Percent Auto 10.3 % (2-11); Neutrophils Absolute Auto 4.4 x10*3/uL (2.0-8.3); Neutrophils Percent Auto 59.4 % (45-73); Platelet Count 284 X10*3/uL (160-400); Red Blood Count 5.03 X10*6/uL (4.60-5.80); Red Cell Distribution Width 13.8 % (11.0-16.0); White Blood Count 7.5 X10*3/uL (4.8-10.8)
[2021-08-14 12:35] LABS: Alanine Aminotransferase 15 U/L (0-40); Alkaline Phosphatase 55 U/L (39-117); Anion Gap 13 (12-20); Aspartate Amino Transferase 23 U/L (5-37); Bilirubin Total 0.5 mg/dL (0.0-1.0); Blood Urea Nitrogen 12 mg/dL (9-16); C Reactive Protein 0.25 mg/dL (< or = 0.50); Calcium 9.8 mg/dL (8.4-10.2); Carbon Dioxide 29 mmol/L (22-29); Chloride 102 mmol/L (96-108); Estimated Glomerular Filt Rate > 60; Glucose Random 77 mg/dL (60-115); Sodium 139 mmol/L (135-145); Total Protein 7.3 g/dL (6.5-8.0)
[2021-08-14 12:52] LABS: Erythrocyte Sedimentation Rate 16 MM/HR (0-15)
== END 2021-08-14 10:53 | disposition home or self-care (01) ==
LOC: HO.LAB 10:52
PROVIDERS: PCP Family Medicine; Visit Provider Nurse Practitioner Family
DX: M05.9 Rheumatoid arthritis with rheumatoid factor, unspecified (principal)
CPT/HCPCS: 36415; 80053; 85025; 85652; 86140

== ENCOUNTER → 2021-10-05 10:18 | Outpatient (BNVA) | payer MEDICARE, OTHER, SELFPAY | PROVIDERS: PCP Family Medicine; Visit Provider Nurse Practitioner Family | DX: M05.9 Rheumatoid arthritis with rheumatoid factor, unspecified (principal); M85.80 Other specified disorders of bone density and structure, unspecified site; Z87.39 Personal history of other diseases of the musculoskeletal system and connective tissue; Z79.899 Other long term (current) drug therapy | CPT/HCPCS: 99212 ==

== ENCOUNTER 2021-10-15 11:20 | Outpatient (REF) | payer OTHER, SELFPAY ==
[2021-10-15 11:35] LABS: MANUAL DIFF FLAG NO
[2021-10-15 11:50] LABS: Basophils Absolute Auto 0.1 X10*3/uL (0.0-0.2); Eosinophils Absolute Auto 0.3 X10*3/uL (0.0-0.4); Eosinophils Percent Auto 4.2 % (0-4); Hematocrit 42.4 % (42.0-52.0); Hemoglobin 14.4 g/dl (14.0-18.0); Imm Gran Abs Auto 0.03 X10*3/uL (0.00-0.03); Imm Gran Pct Auto 0.4 % (0.0-0.4); Lymphocytes Absolute Auto 2.1 X10*3/uL (1.2-4.9); Mean Corpuscular Hemoglobin 30.7 pg (27.0-33.0); Mean Corpuscular Volume 90.4 fL (80.0-98.0); Mean Platelet Volume 9.2 fL (9.4-12.4); Monocytes Absolute Auto 0.8 X10*3/uL (0.1-1.2); Monocytes Percent Auto 11.7 % (2-11); Neutrophils Absolute Auto 3.8 x10*3/uL (2.0-8.3); Neutrophils Percent Auto 53.7 % (45-73); Platelet Count 280 X10*3/uL (160-400); Red Blood Count 4.69 X10*6/uL (4.60-5.80); Red Cell Distribution Width 14.4 % (11.0-16.0); White Blood Count 7.1 X10*3/uL (4.8-10.8)
[2021-10-15 12:48] LABS: Erythrocyte Sedimentation Rate 21 MM/HR (0-15)
[2021-10-15 12:54] LABS: Alanine Aminotransferase 15 U/L (0-40); Albumin Level 4.1 g/dL (3.5-5.0); Alkaline Phosphatase 61 U/L (39-117); Anion Gap 14 (12-20); Aspartate Amino Transferase 18 U/L (5-37); Bilirubin Total 0.5 mg/dL (0.0-1.0); Blood Urea Nitrogen 12 mg/dL (9-16); C Reactive Protein 0.66 mg/dL (< or = 0.50); Calcium 9.5 mg/dL (8.4-10.2); Carbon Dioxide 27 mmol/L (22-29); Chloride 102 mmol/L (96-108); Estimated Glomerular Filt Rate > 60; Glucose Random 107 mg/dL (60-115); Potassium 4.8 mmol/L (3.3-5.1); Sodium 138 mmol/L (135-145); Total Protein 7.2 g/dL (6.5-8.0); Uric Acid 5.7 mg/dL (3.4-7.0)
== END 2021-10-15 11:21 | disposition home or self-care (01) ==
LOC: HO.LAB 11:20
PROVIDERS: PCP Family Medicine; Visit Provider Nurse Practitioner Family
DX: M10.9 Gout, unspecified (principal); M05.9 Rheumatoid arthritis with rheumatoid factor, unspecified
CPT/HCPCS: 36415; 80053; 84550; 85025; 85652; 86140

== ENCOUNTER 2022-01-02 09:41 | Outpatient (REF) | payer OTHER, SELFPAY ==
[2022-01-02 10:24] LABS: MANUAL DIFF FLAG NO
[2022-01-02 11:28] LABS: Basophils Absolute Auto 0.1 X10*3/uL (0.0-0.2); Basophils Percent Auto 1.1 % (0-2); Eosinophils Absolute Auto 0.3 X10*3/uL (0.0-0.4); Eosinophils Percent Auto 4.3 % (0-4); Hematocrit 44.6 % (42.0-52.0); Hemoglobin 14.6 g/dl (14.0-18.0); Imm Gran Abs Auto 0.03 X10*3/uL (0.00-0.03); Imm Gran Pct Auto 0.4 % (0.0-0.4); Lymphocytes Absolute Auto 1.8 X10*3/uL (1.2-4.9); Lymphocytes Percent Auto 23.1 % (20-40); Mean Corpuscular HGB Conc 32.7 g/dl (31.0-36.0); Mean Corpuscular Volume 91.6 fL (80.0-98.0); Mean Platelet Volume 9.3 fL (9.4-12.4); Monocytes Percent Auto 12.3 % (2-11); Neutrophils Absolute Auto 4.6 x10*3/uL (2.0-8.3); Neutrophils Percent Auto 58.8 % (45-73); Platelet Count 304 X10*3/uL (160-400); Red Blood Count 4.87 X10*6/uL (4.60-5.80); Red Cell Distribution Width 14.1 % (11.0-16.0); White Blood Count 7.9 X10*3/uL (4.8-10.8)
[2022-01-02 12:18] LABS: Alanine Aminotransferase 18 U/L (0-40); Aspartate Amino Transferase 19 U/L (5-37); C Reactive Protein 0.19 mg/dL (< or = 0.50); Estimated Glomerular Filt Rate > 60
[2022-01-02 12:44] LABS: Erythrocyte Sedimentation Rate 16 MM/HR (0-15)
== END 2022-01-02 09:42 | disposition home or self-care (01) ==
LOC: HO.LAB 09:41
PROVIDERS: PCP Family Medicine; Visit Provider Nurse Practitioner Family
DX: M05.9 Rheumatoid arthritis with rheumatoid factor, unspecified (principal); Z79.899 Other long term (current) drug therapy
CPT/HCPCS: 36415; 82565; 84450; 84460; 85025; 85652; 86140

== ENCOUNTER → 2022-01-04 09:59 | Outpatient (BNVA) | payer OTHER, SELFPAY | PROVIDERS: PCP Family Medicine; Visit Provider Nurse Practitioner Family | DX: M05.9 Rheumatoid arthritis with rheumatoid factor, unspecified (principal); M10.9 Gout, unspecified; M85.80 Other specified disorders of bone density and structure, unspecified site | CPT/HCPCS: 99212 ==